=== PATIENT | male | born 1955 | race Caucasian/White ===

== ENCOUNTER 2017-01-10 11:25 | Emergency (ER) | payer BC ==
[2017-01-10 12:03] VITALS: BP 151/83
--- NOTE | 2017-01-10 12:15 | EDM.PDOC ---
ED HPI GENERAL MEDICAL PROBLEM - General Chief Complaint: Skin Complaint Stated Complaint: INFECTION ON HANDS/HAS LEUKEMIA Time Seen by Provider: 01/10/17 11:50 Source of Information: Reports: Patient, Family, RN Notes Reviewed History Limitations: Reports: No Limitations - History of Present Illness INITIAL COMMENTS - FREE TEXT/NARRATIVE: 61-year-old gentleman presents emergency department today with complaint of developing rash on his left hand, he does have a couple breaks in the skin on the dorsal aspect as well as on digit #2 he is currently undergoing chemotherapy he denies any fevers or red streaks up the arm but he has developed redness around both these areas he's worried about infection left hand Pain Score (Numeric/FACES): 3 - Related Data Allergies Allergy/AdvReac Type Severity Reaction Status Date / Time rituximab [From Rituxan] Allergy Shortness Verified 01/10/17 11:45 of Breath Home Meds: Home Meds Aspirin 325 mg PO DAILY 01/10/17 [History] Ibrutinib [Imbruvica] 3 tab PO DAILY 01/10/17 [History] Insulin Glargine,Hum.Rec.Anlog [Lantus Solostar] 16 units SQ DAILY 01/10/17 [ History] Loratadine [Alavert] 1 tab PO DAILY 01/10/17 [History] Pioglitazone [Actos] 45 mg PO DAILY 01/10/17 [History] Tamsulosin [Tamsulosin 24 Hr] 0.4 mg PO DAILY 01/10/17 [History] atorvaSTATin [Lipitor] 20 mg PO BEDTIME 01/10/17 [History] glipiZIDE [Glucotrol] 20 mg PO BID 01/10/17 [History] metFORMIN [Glucophage] 1,000 mg PO BIDMEALS 01/10/17 [History] Past Medical History Cardiovascular History: Reports: Hypertension, Other (See Below) Other Cardiovascular History: DVT right ankle to groin Respiratory History: Reports: Other (See Below) Other Respiratory History: uses cpap, pulmonary nodule on right Genitourinary History: Reports: Prostate Disorder Musculoskeletal History: Reports: Osteoarthritis Neurological History: Reports: Neuropathy, Diabetic Endocrine/Metabolic History: Reports: Diabetes, Type II Immunologic History: Reports: Other (See Below) Other Immunologic History: lymes Oncologic (Cancer) History: Reports: Leukemia, Other (See Below) Other Oncologic History: CLL Dermatologic History: Reports: Eczema - Past Surgical History GI Surgical History: Reports: Hernia Repair/Other Social & Family History - Tobacco Use Smoking Status *Q: Never Smoker Second Hand Smoke Exposure: No - Recreational Drug Use Recreational Drug Use: No ED ROS GENERAL - Review of Systems Review Of Systems: See Below Constitutional: Denies: Fever, Chills HEENT: Reports: No Symptoms Respiratory: Reports: No Symptoms Cardiovascular: Reports: No Symptoms GI/Abdominal: Reports: No Symptoms Skin: Reports: Erythema, Wound ED EXAM, SKIN/RASH Exam: See Below Text/Narrative:: Examination of left hand there is a small wound on the dorsal aspect of the hand with erythema around that approximately 1 cm as well as the medial aspect of digit #2 small wounds appreciated with erythema around that concern for development of cellulitis, radial pulses 2+ I don't appreciate any red streaks up the arm that is nontender to the touch Exam Limited By: No Limitations General Appearance: Alert, WD/WN, No Apparent Distress Course - Vital Signs Last Recorded V/S: Last Vital Signs Temp 97.5 F 01/10/17 12:02 Pulse 66 01/10/17 12:02 Resp 16 01/10/17 12:02 BP 151/83 H 01/10/17 12:02 Pulse Ox 94 L 01/10/17 12:02 Departure - Departure Time of Disposition: 12:14 Disposition: Home, Self-Care 01 Condition: Fair Clinical Impression: Cellulitis Qualifiers: Site of cellulitis: extremity Site of cellulitis of extremity: finger Laterality: left Qualified Code(s): L03.012 - Cellulitis of left finger - Discharge Information Forms: ED Department Discharge Additional Instructions: Take full course of antibiotics, Please followup with your primary care provider in 3-5 days if not better, please call return to the emergency department with worsening of symptoms. 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 This note was dictated using dragon voice recognition software please call with any questions.
== END 2017-01-10 12:35 | disposition home or self-care (01) ==
LOC: JP.ED 11:25
DX: L03.012 Cellulitis of left finger (principal); L03.114 Cellulitis of left upper limb; I10 Essential (primary) hypertension; M19.90 Unspecified osteoarthritis, unspecified site; C95.90 Leukemia, unspecified not having achieved remission; E11.40 Type 2 diabetes mellitus with diabetic neuropathy, unspecified; Z79.84 Long term (current) use of oral hypoglycemic drugs; Z79.4 Long term (current) use of insulin; Z98.890 Other specified postprocedural states; Z86.718 Personal history of other venous thrombosis and embolism; Z79.82 Long term (current) use of aspirin; Z79.899 Other long term (current) drug therapy; Z88.8 Allergy status to other drugs, medicaments and biological substances
CPT/HCPCS: 99283